=== PATIENT | female | born 1995 | race Two or more races ===

== ENCOUNTER 2019-12-14 15:04 | Emergency (ER) | payer OTHER ==
[~2019-12-14] VITALS: Ht 162.6 cm; Wt 65.8 kg
[2019-12-14 16:00] VITALS: BP 120/72
[2019-12-14] MEDS ORDERED: ACETAMINOPHEN/CODEINE#3 (300/30mg) TAB PO ONE (16:30)
== END 2019-12-14 17:12 | disposition home or self-care (01) ==
LOC: ER 15:04
DX: G43.909 Migraine, unspecified, not intractable, without status migrainosus (principal); J03.80 Acute tonsillitis due to other specified organisms; B96.89 Other specified bacterial agents as the cause of diseases classified elsewhere